=== PATIENT | male | born 1995 ===

== ENCOUNTER 2021-03-10 16:31 | Emergency (ER) | payer OTHER ==
[2021-03-10] MEDS ORDERED: Orphenadrine 60 MG/2 ML Inj IM ONE (16:55)
[2021-03-10] MEDS ORDERED: Ketorolac 60 MG/2 ML SDV IM ONE (16:55)
[2021-03-10] MEDS ORDERED: Take Home: Cyclobenzaprine 10 MG Tab, 4 Tab Pack PO ONE (17:46)
[2021-03-10] MEDS ORDERED: Take Home: Ketorolac 10 MG Tab, 4 Tab Pack PO ONE (17:46)
--- NOTE | 2021-03-10 17:46 | EDM.PDOC ---
ED HPI GENERAL MEDICAL PROBLEM - General Chief Complaint: Back Pain or Injury Stated Complaint: HURT HIS BACK Time Seen by Provider: 03/10/21 16:50 Source of Information: Reports: Patient History Limitations: Reports: No Limitations - History of Present Illness INITIAL COMMENTS - FREE TEXT/NARRATIVE: Esperanza is a 25 year old male who presents with acute onset of low back pain. Was out playing golf, swung his club and felt "like something stabbed me and is pinching in my back". Has a history of back injuries while playing sports, deals with back pain often but not this severe in some time. He states if he tries to stand straight, the pain goes down his right leg. Was unable to walk well as a result of the pain. Has less pain with sitting. Onset: Today, Sudden Duration: Hour(s):, Constant Location: Reports: Back Quality: Reports: Ache, Sharp Severity: Severe Improves with: Reports: Rest Worsens with: Reports: Movement Right Lower Back Pain Score (Numeric/FACES): 10 - Related Data Allergies Allergy/AdvReac Type Severity Reaction Status Date / Time No Known Allergies Allergy Verified 03/10/21 16:43 Home Meds: Home Meds . [No Known Home Meds] 03/10/21 [History] Past Medical History - Past Health History Medical/Surgical History: Denies Medical/Surgical History Social & Family History - Tobacco Use Tobacco Use Status *Q: Current Every Day Tobacco User Years of Tobacco use: 12 Packs/Tins Daily: 1 - Caffeine Use Caffeine Use: Reports: None - Recreational Drug Use Recreational Drug Use: No ED ROS GENERAL - Review of Systems Review Of Systems: See Below Constitutional: Denies: Fever, Chills, Malaise, Weakness, Fatigue HEENT: Reports: No Symptoms Respiratory: Denies: Shortness of Breath Cardiovascular: Denies: Chest Pain Endocrine: Denies: Fatigue GI/Abdominal: Denies: Abdominal Pain, Nausea, Vomiting : Reports: No Symptoms Musculoskeletal: Reports: Back Pain Skin: Reports: No Symptoms Neurological: Denies: Dizziness, Weakness Psychiatric: Reports: No Symptoms ED EXAM,LOWER BACK PAIN/INJURY - Physical Exam Exam: See Below Exam Limited By: No Limitations General Appearance: Alert, WD/WN, Moderate Distress Neck: Normal Inspection, Supple, Non-Tender Respiratory/Chest: No Respiratory Distress, Lungs Clear, Normal Breath Sounds Cardiovascular: Regular Rate, Rhythm GI/Abdominal: Normal Bowel Sounds, Soft, Non-Tender Back Exam: Normal Inspection, Decreased Range of Motion (able to flex well but has difficult with extension. pain in low back with leg raise. Strengths equal in lower extremities. ) Extremities: Normal Inspection, No Pedal Edema Neurological: Alert, Normal Mood/Affect Skin Exam: Warm, Dry Course - Vital Signs Last Recorded V/S: Last Vital Signs Temp 98.6 F 03/10/21 16:37 Pulse 90 03/10/21 16:37 Resp 20 03/10/21 16:37 BP 165/93 H 03/10/21 16:37 Pulse Ox 96 03/10/21 16:37 - Orders/Labs/Meds Meds: Medications Discontinued Medications Generic Name Dose Route Start Last Admin Trade Name Price PRN Reason Stop Dose Admin Ketorolac Tromethamine 60 mg 03/10/21 16:55 03/10/21 16:59 Ketorolac 60 Mg/2 Ml Sdv IM 03/10/21 16:56 60 mg ONETIME ONE Administration Orphenadrine Citrate 60 mg 03/10/21 16:55 03/10/21 17:00 Orphenadrine 60 Mg/2 Ml Inj IM 03/10/21 16:56 60 mg ONETIME ONE Administration - Re-Assessments/Exams Free Text/Narrative Re-Assessment/Exam: 03/10/21 17:50 Patient given Toradol and Norflex, gaining some relief. Departure - Departure Time of Disposition: 17:50 Disposition: Home, Self-Care 01 Condition: Fair Clinical Impression: Low back pain - Discharge Information *PRESCRIPTION DRUG MONITORING PROGRAM REVIEWED*: No *COPY OF PRESCRIPTION DRUG MONITORING REPORT IN PATIENT DAMI: No Instructions: Acute Back Pain, Adult Forms: ED Department Discharge Additional Instructions: 1. Rest 2. Slow, easy passive back stretches tonight 3. Ice frequently 4. Toradol 10 mg every hours for pain~ recommend taking the next 2-3 days and then as needed 5. Flexeril 10 mg every 8 hours as needed for muscle spasms, may cause drowsiness. Do not operate equipment while using 6. Call physical therapy at 8 am for appointment to be seen tomorrow~ [phone] 7. Call or return with any questions or concerns. Sepsis Event Note (ED) - Evaluation Sepsis Screening Result: No Definite Risk - Focused Exam Vital Signs: Vital Signs Temp Pulse Resp BP Pulse Ox 03/10/21 16:37 98.6 F 90 20 165/93 H 96
== END 2021-03-10 18:05 | disposition home or self-care (01) ==
LOC: EDBD 16:31 → CC.ED 16:31
DX: M54.5 Low back pain (principal); Z72.0 Tobacco use
CPT/HCPCS: 96372; 99283; A9270; J1885; J2360